=== PATIENT | male | born 1950 | race Caucasian/White ===

== ENCOUNTER → 2024-06-28 | Outpatient (CLI) | payer MEDICARE ==
--- NOTE | 2024-06-28 09:51 | MR ---
EXAMINATION TYPE: MR Prostate wo/w con DATE OF EXAM: 06/28/2024 COMPARISON: None. INDICATION: Elevated PSA of 6.4 on April 17, 2024. Recent Biopsy and Date: None Pathology Report (If Applicable): n/a TECHNIQUE: Examination was performed using a 3T MRI without an endorectal coil. Multiparametric imaging was perf ormed with T2 mutliplanar sequences, axial diffusion weighted imaging and dynamic contrast enhanced i maging, utilizing 8 mL intravenous Gadavist gadolinium contrast. FINDINGS: PROSTATE VOLUME: 3.6 cm SI x 3.4 cm AP x 3.9 cm LR Vol= 25.0 cc PSA DENSITY: 0.26 ng/ml/cc Normal-sized prostate is present. Peripheral zone is unremarkable. Site 1: There is a 2.3 cm noncircumscribed moderately hypointense lesion on T2-weighted images in the right t ransitional zone at mid gland level anteriorly corresponding to area of marked hypointensity on ADC m apping and slight hyperintensity on diffusion-weighted imaging with focal postcontrast enhancement. P I-RADS 5 lesion Urinary bladder appears within normal limits. Sigmoid colonic diverticulosis is present. No destructi ve osseous lesions. IMPRESSION: Normal-size prostate. A focus of clinically significant cancer is suspected. Advise imaging guided targeted biopsy to [facility] evaluate. Highest Assessment Category: 5 MRI Stage: T0 N0 M0 based on review of pelvic images. False negative rates for MRI range from 5-20% depending on risk profile. Assessment Categories: 1 ? Very low (clinically significant cancer is highly unlikely to be present) 2 ? Low (clinically significant cancer is unlikely to be present) 3 ? Intermediate (the presence of clinically significant cancer is equivocal) 4 ? High (clinically significant cancer is likely to be present) 5 ? Very high (clinically significant cancer is highly likely to be present) [facility], , 06/28/2024 9:49 AM
== END | disposition home or self-care (01) ==
LOC: RADMRIMAIN 07:20
PROVIDERS: ATTEND Urology
DX: R97.20 Elevated prostate specific antigen [PSA] (principal)
CPT/HCPCS: 72197; A9585